=== PATIENT | female | born 1965 | race American Indian/Alaskan Native ===

== ENCOUNTER 2017-08-19 06:00 | Inpatient (IN) | payer BC ==
[2017-08-13 08:00] VITALS: BMI 37.8
[2017-08-19] MEDS ORDERED: Lidocaine 4% (Laryng-O-Jet) Kit MM ONE (07:42)
[2017-08-19] MEDS ORDERED: Lactated Ringer's 1,000 ML IV ONE ×2 (07:45→09:17)
[2017-08-19] MEDS ORDERED: ceFAZolin IV 2 gm in Dextrose 0 GM/0 ML BAG IVPB ONE (07:48)
[2017-08-19] MEDS ORDERED: Succinylcholine Chloride 20 mg/ml Syr (5 ml) IV ONE (07:49)
[2017-08-19] MEDS ORDERED: Propofol 10 mg/ml Inj (20 ML) ONE (07:49)
[2017-08-19] MEDS ORDERED: Midazolam 2 MG/2 ML VIAL ONE (07:49)
[2017-08-19] MEDS ORDERED: cefOXitin IV 2 gm in Dextrose 2 GM/50 ML BAG IVPB ONE (07:49)
[2017-08-19] MEDS ORDERED: Rocuronium 10 mg/ml (5 ml) ONE ×2 (07:49→08:22)
[2017-08-19] MEDS ORDERED: Sodium Chloride 0.9% 1,000 ML IV ONE (08:00)
[2017-08-19] MEDS: Bacitracin 500 Units/gm Oint Foilpak UD ONE ×2 (08:43→09:38)
[2017-08-19] MEDS ORDERED: Neostigmine Methylsulfate 3mg/3ml Syringe IV ONE (09:13)
[2017-08-19] MEDS: Methylene Blue 10 mg/mL(10ml) IV ONE ×3 (09:15→11:22)
[2017-08-19] MEDS ORDERED: Naloxone 0.4 mg/ml Inj (Adult) IVP PRN (09:22)
[2017-08-19] MEDS ORDERED: Morphine Monoject Barrel PCA 1mg/ml IV PRN (09:22)
[2017-08-19] MEDS ORDERED: DiphenhydrAMINE 50 mg/ml Inj IVP PRN (09:22)
[2017-08-19] MEDS ORDERED: Morphine 4 MG/ML VIAL ONE (09:48)
[2017-08-19] MEDS: HYDROmorphone 0.5 mg/0.5 ml ISec IVP PRN ×4 (10:03→11:05)
--- NOTE | 2017-08-19 10:26 | OP ---
PROCEDURE DATE: 08/19/2017 PREOPERATIVE DIAGNOSES: Fibroid uterus, menorrhagia, anemia. POSTOPERATIVE DIAGNOSES: Fibroid uterus, menorrhagia, anemia. PROCEDURE: Subtotal abdominal hysterectomy, bilateral salpingectomy, cystoscopy. SURGEON: Mary Soares MD. TYPE OF ANESTHESIA: General. FINDINGS: An 18-week size multifibroid uterus with normal tubes and ovaries. ESTIMATED BLOOD LOSS: Less than 1 mL. COMPLICATIONS: Nil. DESCRIPTION OF PROCEDURE: After the risks, benefits and alternatives of the planned procedures including but not limited to infection, hemorrhage, deep vein thrombosis, atelectasis, pneumonia, pulmonary embolism, damage to the bladder, damage to the ureter, renal insufficiency, renal failure, wound infection, wound dehiscence, incisional hernia, keloid formation, damage to large and small intestines, damage to inferior vena cava and the aorta requiring extensive repair, anesthesia complications, electrolyte imbalance, possibility of , fluid overload, cerebral edema, embolism and other complications that were discussed, but are not listed above, have been explained to the patient and all her questions answered. Informed consent was obtained. The patient was taken to the operating room in a stable condition. Under suitable level of general analgesia, she was prepped and draped in a sterile fashion after having been placed in a supine position. The abdomen was entered through a Pfannenstiel-type incision and carried through the subcutaneous tissues to the fascia. Fascia was opened transversely and dissected off the rectus abdominis musculature. The rectus abdominis musculature was then in the midline to remove the parietal peritoneum, which was entered sharply and incised superiorly and inferiorly. An O'Felton-O'Salas retractor was inserted into the abdomen and bowel was packed away from the pelvic cavity. The right and left round ligaments were then clamped, cut and ligated using #0 Vicryl suture. The anterior lip of the broad ligament was opened on the right and left side and joined in the midline over the bladder reflection. The bladder was then dissected off the lower uterine segment and cervix. A hole was made in the broad ligament on the right and left side and the upper portion of the broad ligament, cornua and utero-ovarian ligaments were doubly clamped, cut and doubly ligated using #0 Vicryl suture. The right and left uterine vessels were skeletonized, doubly clamped, cut and doubly ligated using #0 Vicryl suture. The right and left upper portions of the cardinal ligaments were then doubly clamped, cut and doubly ligated using #0 Vicryl suture. The cervix was then transected half way up the endocervical canal. The cervical stump was then closed using interrupted sutures of 0 Vicryl suture. The pelvic peritoneum was then reapproximated over the cervical stump using a running suture of 2-0 chromic with good hemostasis. The mesosalpinx on the right and left side was resected to resect the right and left fallopian tubes. Both ovaries were normal and left in place. At the end of the procedure, peritoneal cavity was irrigated using copious amounts of saline. Saline was evacuated. The abdomen was then closed in layers with 0 chromic to the parietal peritoneum. Rectus muscles were reapproximated using interrupted sutures of 0 chromic. Fascia was reapproximated using 2 separate running sutures of 0 Vicryl to meet in the midline. Subcutaneous tissues were reapproximated using interrupted sutures of 0 plain and the initial skin incision was reapproximated using 4-0 Vicryl in a subcuticular fashion. The patient was then repositioned into a frog leg position. The cystoscopy was performed. The urethra and bladder neck were normal. The interior of the bladder was inspected with a 70-degree scope and noted to be normal. Both ureteric orifices were visualized and noted to be patent with the blue dye coming out of both openings from the IV methylene blue the patient had received. At the end of the procedure, a new Alejandra catheter was inserted. The patient was then transferred to the recovery room in a stable condition. Pad, needle and instrument counts were correct x2. There were no complications. Mary Soares MD
[2017-08-19] MEDS: cefOXitin IV 2 gm in Dextrose 2 GM/50 ML BAG IVPB SCH ×2 (16:20→23:19)
[2017-08-19] MEDS: Lactated Ringer's 1,000 ML IV SCH (16:28)
[2017-08-20] MEDS: Lactated Ringer's 1,000 ML IV SCH (04:15)
[2017-08-20 07:50] LABS: HEMATOCRIT 35.3 % (34.0-47.0); MEAN CELL VOLUME 83.2 fL (81.0-99.0); MEAN CORPUSCULAR HEMOGLOBIN 27.4 pg (27.0-31.0); MEAN CORPUSCULAR HGB CONC 32.9 g/dL (33.0-37.0); MEAN PLATELET VOLUME 8.4 fL (7.2-11.7); WHITE BLOOD COUNT 8.1 K/uL (4.8-10.8)
[2017-08-20] MEDS: cefOXitin IV 2 gm in Dextrose 2 GM/50 ML BAG IVPB SCH (08:18)
[2017-08-20] MEDS ORDERED: Oxycodone/Acetaminophen 5/325 mg Tab PO PRN ×2 (09:32→10:38)
--- NOTE | 2017-08-20 10:35 | CP.PCM.PN ---
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 Per nursing no acute events overnight. Patient is doing well, currently out of bed and in chair. Admits to having pain at incision site. Tolerating clear liquid diet. Alejandra discontinued this am, has not voided yet. Denies passing flatus or BM. Denies fevers, chills, N/V, headaches, dizziness, cp, palpitations, sob, urinary symptoms. Objective - Vital Signs/Intake and Output Vital Signs (last 24 hours): Temp Pulse Resp BP Pulse Ox 97.5 F L 82 18 123/79 100 08/20/17 08:00 08/20/17 08:00 08/20/17 08:00 08/20/17 08:00 08/20/17 08:00 Intake and Output: 08/20/17 08/20/17 06:59 18:59 Intake Total 2300 125 Output Total 1700 Balance 600 125 - Medications Medications: Current Medications Diphenhydramine HCl (Benadryl) 25 mg IVP Q6 PRN PRN Reason: Itching / Pruritus Enoxaparin Sodium (Lovenox) 40 mg SC DAILY [facility] Lactated Ringer's (Lactated Ringer's) 1,000 mls @ 125 mls/hr IV .Q8H [facility] Last Admin: 08/20/17 04:15 Dose: 125 mls/hr Magnesium Hydroxide (Milk Of Magnesia) 30 ml PO ONCE ONE Stop: 08/20/17 20:01 Naloxone HCl (Narcan) 0.1 mg IVP Q2M PRN PRN Reason: apnea Ondansetron HCl (Zofran Inj) 4 mg IVP Q8H PRN PRN Reason: Nausea/Vomiting Oxycodone/Acetaminophen (Percocet 5/325 Mg Tab) 2 tab PO Q4H PRN PRN Reason: Pain, severe (8-10) Stop: 08/23/17 09:33 Simethicone (Mylicon Chew Tab) 80 mg PO QID [facility] - Labs Labs: 08/20/17 07:39 - Constitutional Appears: Well, Non-toxic - Head Exam Head Exam: ATRAUMATIC, NORMAL INSPECTION, NORMOCEPHALIC - Eye Exam Eye Exam: EOMI, Normal appearance Pupil Exam: NORMAL ACCOMODATION - ENT Exam ENT Exam: Mucous Membranes Moist - Neck Exam Neck Exam: Full ROM - Respiratory Exam Respiratory Exam: Clear to Ausculation Bilateral, NORMAL BREATHING PATTERN. absent: Rales, Rhonchi, Wheezes - Cardiovascular Exam Cardiovascular Exam: REGULAR RHYTHM, +S1, +S2 - GI/Abdominal Exam GI & Abdominal Exam: Soft, Tenderness (appropriately tender), Hypoactive Bowel Sounds Additional comments: dressing c/d/i - Extremities Exam Extremities Exam: Normal Inspection. absent: Calf Tenderness Additional comments: +Pedal pulses - Neurological Exam Neurological Exam: Alert, Awake, Oriented x3 - Psychiatric Exam Psychiatric exam: Normal Affect, Normal Mood - Skin Skin Exam: Dry, Normal Color, Warm Assessment and Plan - Assessment and Plan (Free Text) Assessment: 52 yo female with history of fibroid uterus, menorrhagia and anemia s/p Subtotal abdominal hysterectomy with Bilateral salpingectomy and cystoscopy POD 1 Plan: -Stable, afebrile -TRIMMER OPERATOR pump discontinued -Pain control: percocet and motrin prn -Post-op hgb stable -F/U voiding trial -Advance diet as tolerated -Encourage ambulation and hydration -Encourage ISS use -Continue routine post-op care -Lovenox 40 SC daily for DVT ppx -Plan discussed with attending Lliy Mari DO PGY-1
--- NOTE | 2017-08-20 11:03 | PN ---
DATE: SUBJECTIVE: Patient has mild incisional pain. OBJECTIVE: VITAL SIGNS: Stable. She is afebrile. ABDOMEN: Abdominal incision is clean and intact. Bowel sounds are normal. EXTREMITIES: Nontender. Homans sign is negative. No evidence of DVT. CHEST: Clear. CARDIAC: Reveals normal heart sounds without any murmur. LUNGS: Clear. ASSESSMENT: Patient is status post subtotal abdominal hysterectomy, bilateral salpingectomy, cystoscopy. PLAN: Ambulate the patient. Advance diet as tolerated. Mary Soares MD
[2017-08-20 11:35] LABS: BLOOD UREA NITROGEN 11 mg/dL (7-17); CALCIUM 8.3 mg/dl (8.6-10.4); CARBON DIOXIDE 36 mmol/L (22-30); CHLORIDE 99 mmol/L (98-107); GFR AFRICAN-AMERICAN > 60; GLUCOSE,RANDOM 102 mg/dL (65-105); POTASSIUM 3.7 mmol/L (3.6-5.2); SODIUM 137 mmol/L (132-148)
[2017-08-20] MEDS: Simethicone 80 mg Chewtab PO SCH ×4 (12:03→22:06)
[2017-08-20] MEDS: Enoxaparin 40 mg Syringe SC SCH (12:07)
[2017-08-20 16:40] VITALS: RESP 20
[2017-08-20] MEDS ORDERED: Magnesium Hydroxide Susp 30 ml UD PO ONE (20:00)
--- NOTE | 2017-08-21 07:50 | CP.PCM.PN ---
Subjective - Date & Time of Evaluation Date of Evaluation: 08/21/17 Time of Evaluation: 07:49 - Subjective Subjective: CLIENT EXPERIENCE SPECIALIST Progress Note: Patient seen and examined at bedside. Per nursing no acute events overnight. Patient is doing well, pain is controlled. Ambulating and tolerating diet. Passing flatus, no BM yet. Urinating without difficulty. Offers no complaints at this time. Denies fevers, chills, headaches, dizziness, cp, sob, urinary symptoms. Objective - Vital Signs/Intake and Output Vital Signs (last 24 hours): Temp Pulse Resp BP Pulse Ox 99.1 F 88 20 145/87 98 08/21/17 00:24 08/21/17 00:24 08/21/17 00:24 08/21/17 00:24 08/21/17 00:24 - Medications Medications: Current Medications Diphenhydramine HCl (Benadryl) 25 mg IVP Q6 PRN PRN Reason: Itching / Pruritus Enoxaparin Sodium (Lovenox) 40 mg SC DAILY [facility] Last Admin: 08/20/17 12:07 Dose: 40 mg Lactated Ringer's (Lactated Ringer's) 1,000 mls @ 125 mls/hr IV .Q8H [facility] Last Admin: 08/20/17 04:15 Dose: 125 mls/hr Ibuprofen (Motrin Tab) 600 mg PO Q6H PRN PRN Reason: Pain, Mild (1-3) Last Admin: 08/21/17 02:37 Dose: 600 mg Naloxone HCl (Narcan) 0.1 mg IVP Q2M PRN PRN Reason: apnea Ondansetron HCl (Zofran Inj) 4 mg IVP Q8H PRN PRN Reason: Nausea/Vomiting Oxycodone/Acetaminophen (Percocet 5/325 Mg Tab) 2 tab PO Q4H PRN PRN Reason: Pain, severe (8-10) Stop: 08/23/17 09:33 Last Admin: 08/20/17 12:05 Dose: 2 tab Oxycodone/Acetaminophen (Percocet 5/325 Mg Tab) 1 tab PO Q4H PRN PRN Reason: Pain, moderate (4-7) Stop: 08/23/17 10:39 Simethicone (Mylicon Chew Tab) 80 mg PO QID [facility] Last Admin: 08/20/17 22:06 Dose: 80 mg - Labs Labs: 08/20/17 07:39 08/20/17 11:14 - Constitutional Appears: Well, No Acute Distress - Head Exam Head Exam: ATRAUMATIC, NORMAL INSPECTION, NORMOCEPHALIC - Eye Exam Eye Exam: Normal appearance Pupil Exam: NORMAL ACCOMODATION - ENT Exam ENT Exam: Mucous Membranes Moist - Neck Exam Neck Exam: Full ROM - Respiratory Exam Respiratory Exam: Clear to Ausculation Bilateral, NORMAL BREATHING PATTERN. absent: Rales, Rhonchi, Wheezes - Cardiovascular Exam Cardiovascular Exam: REGULAR RHYTHM, +S1, +S2 - GI/Abdominal Exam GI & Abdominal Exam: Soft, Tenderness (appropriately tender) Additional comments: incision c/d/i with suture - Extremities Exam Extremities Exam: Normal Inspection. absent: Calf Tenderness - Neurological Exam Neurological Exam: Alert, Awake, Normal Gait - Psychiatric Exam Psychiatric exam: Normal Affect, Normal Mood - Skin Skin Exam: Dry, Normal Color, Warm Assessment and Plan - Assessment and Plan (Free Text) Assessment: 52 yo female with history of fibroids, menorrhagia and anemia s/p subtotal abdominal hysterectomy with B/L salpingectomy and cystoscopy POD#2 Plan: -Stable, afebrile -Pain control - percocet and motrin prn -Encourage ambulation and hydration -Encourage ISS use -Continue routine postop care -Lovenox 40mg daily -Anticipate D/C home today -Plan discussed with attending Lily Mari DO PGY-1
[2017-08-21] MEDS: Simethicone 80 mg Chewtab PO SCH ×3 (10:24→17:09)
[2017-08-21] MEDS: Enoxaparin 40 mg Syringe SC SCH (10:24)
[2017-08-21] MEDS ORDERED: Influenza Vaccine 60 mcg/0.5 mL SYR (4YR UP) IM ONE (12:54)
--- NOTE | 2017-08-21 13:07 | CP.PCM.PN ---
Subjective - Date & Time of Evaluation Date of Evaluation: 08/21/17 Time of Evaluation: 13:04 - Subjective Subjective: no complaints, had BM Objective - Vital Signs/Intake and Output Vital Signs (last 24 hours): Temp Pulse Resp BP Pulse Ox 97.5 F L 89 20 130/78 96 08/21/17 07:15 08/21/17 07:15 08/21/17 07:15 08/21/17 07:15 08/21/17 07:15 - Medications Medications: Current Medications Diphenhydramine HCl (Benadryl) 25 mg IVP Q6 PRN PRN Reason: Itching / Pruritus Enoxaparin Sodium (Lovenox) 40 mg SC DAILY [facility] Last Admin: 08/21/17 10:24 Dose: 40 mg Lactated Ringer's (Lactated Ringer's) 1,000 mls @ 125 mls/hr IV .Q8H [facility] Last Admin: 08/20/17 04:15 Dose: 125 mls/hr Ibuprofen (Motrin Tab) 600 mg PO Q6H PRN PRN Reason: Pain, Mild (1-3) Last Admin: 08/21/17 10:24 Dose: 600 mg Naloxone HCl (Narcan) 0.1 mg IVP Q2M PRN PRN Reason: apnea Ondansetron HCl (Zofran Inj) 4 mg IVP Q8H PRN PRN Reason: Nausea/Vomiting Oxycodone/Acetaminophen (Percocet 5/325 Mg Tab) 2 tab PO Q4H PRN PRN Reason: Pain, severe (8-10) Stop: 08/23/17 09:33 Last Admin: 08/20/17 12:05 Dose: 2 tab Oxycodone/Acetaminophen (Percocet 5/325 Mg Tab) 1 tab PO Q4H PRN PRN Reason: Pain, moderate (4-7) Stop: 08/23/17 10:39 Simethicone (Mylicon Chew Tab) 80 mg PO QID [facility] Last Admin: 08/21/17 10:24 Dose: 80 mg - Labs Labs: 08/20/17 07:39 08/20/17 11:14 - Constitutional Appears: Well - Head Exam Head Exam: ATRAUMATIC - Respiratory Exam Respiratory Exam: NORMAL BREATHING PATTERN - Cardiovascular Exam Cardiovascular Exam: REGULAR RHYTHM - GI/Abdominal Exam Additional comments: incision clean and intact - Extremities Exam Extremities Exam: Normal Inspection - Neurological Exam Neurological Exam: Normal Gait - Psychiatric Exam Psychiatric exam: Normal Affect Assessment and Plan - Assessment and Plan (Free Text) Plan: discharge home on keflex 500mg po [id number] tylenol no 3 2 tabs po q4h prn #20 f /u office 1 week
[2017-08-21 16:48] VITALS: BP 139/85; PULSE 90; TEMP 97.9; O2SAT 99
== END 2017-08-21 19:00 | disposition home or self-care (01) | DRG 743 ==
LOC: C.9S 06:00 → C.4M 10:45
PROVIDERS: ADMIT Obstetrics & Gynecology Reproductive Endocrinology; ATTEND Obstetrics & Gynecology Reproductive Endocrinology
PROC: 0UT70ZZ Resection of Bilateral Fallopian Tubes, Open Approach (ICD-10-PCS; 2017-08-19)
PROC: 0TJB8ZZ Inspection of Bladder, Via Natural or Artificial Opening Endoscopic (ICD-10-PCS; 2017-08-19)
PROC: 0UT90ZZ Resection of Uterus, Open Approach (ICD-10-PCS; principal; 2017-08-19 07:45)
DX: D25.9 Leiomyoma of uterus, unspecified (principal); D64.9 Anemia, unspecified; N92.0 Excessive and frequent menstruation with regular cycle; N80.0 Endometriosis of uterus